=== PATIENT | male | born 1965 | race Caucasian/White ===

== ENCOUNTER → 2021-01-02 15:57 | Outpatient (CLI) | payer BC, SELFPAY ==
--- NOTE | ~2021-01-02 | XR_ITS ---
EXAMINATION: XR wrist RT min 3V DATE: 01/02/2021 16:12 INDICATION: Right wrist pain. TECHNIQUE: 4 views of right wrist were obtained. COMPARISON: Right wrist radiograph 10/23/2017 FINDINGS: Bone alignment is normal. There is a nondisplaced fracture of proximal scaphoid. There is s clerosis in proximal 2/3 of scaphoid. There is mild osteoarthritis of triscaphe joint. IMPRESSION: 1. Nondisplaced fracture of proximal scaphoid. 2. Sclerosis in proximal 2/3 of scaphoid, consistent with osteonecrosis. Reviewed, dictated and finalized at location B.
== END ==
PROVIDERS: PCP Family Medicine; Visit Provider Family Medicine
DX: M25.531 Pain in right wrist (principal); S62.034A Nondisplaced fracture of proximal third of navicular [scaphoid] bone of right wrist, initial encounter for closed fracture
CPT/HCPCS: 73110

== ENCOUNTER → 2021-02-06 15:11 | Outpatient (CLI) | payer BC, SELFPAY ==
--- NOTE | ~2021-02-06 | MR_ITS ---
EXAMINATION: MR wrist RT wo/w con DATE: 02/06/2021 16:55 INDICATION: Scaphoid fracture with right wrist pain and swelling and limited range of motion TECHNIQUE: Magnetic resonance imaging (MRI) of the right wrist was performed without intravenous cont rast. Sequences performed include axial PD-weighted FSE and PD-weighted FS FSE, coronal PD-weighted F S FSE and T1-weighted SE, and sagittal PD-weighted FS FSE and PD-weighted FSE. COMPARISON: Right wrist radiograph dated 01/02/2021 FINDINGS: Bones/other: Nondisplaced comminuted fracture of the scaphoid which includes transverse fracture at the scaphoid w aist and at the proximal pole and with an additional intervening fracture plane. There is mild marrow enhancement at the distal pole of the scaphoid. There is decreased T1 signal, absent enhancement and increased sclerosis on prior radiographs in the scaphoid proximal to the scaphoid waist fracture con sistent with osteonecrosis. No other fractures identified. Mild osteoarthritis at the distal radiouln ar, wrist, midcarpal, triscaphe and first carpal metacarpal joints. There are small joint effusions a t the distal radioulnar joint and at the midcarpal joint. Diffuse prominent synovitis and soft tissue swelling about the carpus. There are small ganglion cysts along the radial and ulnar sides of the pa lmar aspect of the distal radius. There is an additional 6-7 mm diameter ganglion cyst radial to the distal pole of the scaphoid. Intrinsic ligaments: The scapholunate and lunotriquetral ligaments are normal. Triangular fibrocartilage complex (TFCC): The triangular fibrocartilage including its foveal and styloid attachments as well as the dorsal and volar radioulnar ligaments are normal. The ulnar collateral ligament, ulnotriquetral ligament and men iscal homologue are normal. The extensor carpi ulnaris tendon sheath is normal. Extensor wrist: Extensor tendons of the wrist are normal. No tenosynovitis. Flexor wrist: The flexor tendons of the wrist are normal. No abnormality in the carpal tunnel with normal median n erve. Guyon's canal: Guyon's canal including the ulnar nerve and artery are normal. IMPRESSION: 1. Nondisplaced comminuted scaphoid fracture including at the waist and extending into the proximal p ole. Marrow signal changes, sclerosis and absent enhancement in the proximal pole proximal to the sca phoid waist fracture consistent with osteonecrosis. 2. 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 Reviewed, dictated and finalized at location A. IMPRESSION: 1. Nondisplaced comminuted scaphoid fracture including at the waist and extendi ng into the proximal pole. Marrow signal changes, sclerosis and absent enhancem ent in the proximal pole proximal to the scaphoid waist fracture consistent wit h osteonecrosis. 2. 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
[2021-02-06 15:46] LABS: Estimated Glomerular Filt Rate > 60
== END ==
PROVIDERS: PCP Family Medicine; Visit Provider Plastic Surgery
DX: S62.034A Nondisplaced fracture of proximal third of navicular [scaphoid] bone of right wrist, initial encounter for closed fracture (principal); M19.031 Primary osteoarthritis, right wrist
CPT/HCPCS: 73223; A9577

== ENCOUNTER 2022-04-12 13:27 | Emergency (ER) | payer BC, SELFPAY ==
[2022-04-12 13:44] VITALS: BP 156/76; PULSE 86; RESP 18; TEMP 36.6; O2SAT 99
--- NOTE | 2022-04-12 14:16 | ED.GENADULT ---
HPI - General Adult General Chief complaint: Extremity Injury, Lower Stated complaint: Swollen Ankle History of Present Illness HPI narrative: Patient is a 56-year-old male who presents to [facility] via [facility] for evaluation of left ankle and left foot swelling that began 2 days ago. Additionally, he reports posterior knee pain that began 1-1/2 weeks ago. The pain has vastly improved although not resolved. He also reports pain in calf when changing from sitting to standing position. Denies taking meds for sx. Of note, patient contacted PCP who recommended urgent care for ultrasound imaging per pt report. Related Data Home Medications Medication Instructions Recorded Confirmed aspirin 81 mg tablet,delayed 81 mg PO DAILY 08/05/19 04/12/22 release tadalafil 5 mg tablet 5 mg DIRECTED 04/12/22 Allergies Allergy/AdvReac Type Severity Reaction Status Date / Time No Known Allergies Allergy Verified 04/12/22 13:50 Review of Systems Review of Systems: Denies injury, paresthesias, difficulty with ambulation/gait, erythema, weakness, decreased range of motion, abdominal pain, nausea, vomiting, chest pain, shortness of breath PMFSH Past Medical History Medical History Erectile dysfunction FH: CAD (coronary artery disease) GERD (gastroesophageal reflux disease) Hyperlipemia Right wrist pain Smokes less than 2 packs a day with greater than 30 pack year history Family History Family History Father Family history of coronary artery disease Social History Social History Years smoked: 35 Smoking status: Current every day smoker Tobacco type: cigarettes Second hand tobacco smoke exposure: No Alcohol intake: current Drinks per week: 12 Substance use: never Substance use type: does not use Gender identity (if verbalized by the patient): Male Comments I have reviewed and agree with the patient's past medical, surgical, social, and family hx as documented by the RN. There is no relevant family history pertinent to the presenting complaint. Exam Narrative: GENERAL: Well-appearing, well-nourished, and in no acute distress. HEAD: Normocephalic, atraumatic. NECK: Supple. No Lymphadenopathy or nuchal rigidity appreciated. CHEST: Bilateral lung medina are clear to auscultation. No respiratory distress. No evidence of cough or pleuritic cp upon examination. HEART: Regular rate and rhythm. No murmur, gallop, or rub heard. EXTREMITIES: Moderate generalized swelling noted to left ankle and left foot. No evidence of injury, decreased ROM, cyanosis, hematoma, laceration, abrasion, deformity, rash, or puncture. No evidence of pain with active/passive ROM. No evidence of dislocation, ligament laxity, effusion, or pain at rest. Pulses palpable at 2+, strength 5/5, and cap refill < 3 seconds in affected extremity. DTRs normal. Gait normal. Negative Homans. SKIN: Warm, dry, no rash. NEURO: No focal deficits. Alert and oriented x3. SPECIAL OBSERVATIONS: Smiling. Laughing. No evidence of discomfort. Course Course Emergency Course: Recommended ER services for rule out DVT. The patient/guardian displays adequate decision making capability and despite a detailed discussion of alternatives, benefits, risks, and consequences refuses higher level of care to ER. Level of Care: Express Care Visit Vital Signs Vital signs: Vital Signs Temperature 97.9 F 04/12/22 13:44 Pulse Rate 86 04/12/22 13:44 Respiratory Rate 18 04/12/22 13:44 Blood Pressure 156/76 H 04/12/22 13:44 Pulse Oximetry 99 04/12/22 13:44 Oxygen Delivery Room Air 04/12/22 13:44 Temperature 97.9 F 04/12/22 13:44 Pulse Rate 86 04/12/22 13:44 Respiratory Rate 18 04/12/22 13:44 Blood Pressure 156/76 H 04/12/22 13:44 Pulse Oximetry 99 04/12/22 13:44 Oxygen Delivery Room Air 04/12/22 13:44
== END 2022-04-12 14:38 | disposition left against medical advice (07) ==
PROVIDERS: Emergency Provider Nurse Practitioner Family; PCP Family Medicine
DX: M25.472 Effusion, left ankle (principal); F17.210 Nicotine dependence, cigarettes, uncomplicated; K21.9 Gastro-esophageal reflux disease without esophagitis; E78.5 Hyperlipidemia, unspecified; Z79.82 Long term (current) use of aspirin
CPT/HCPCS: 99211; G0463

== ENCOUNTER 2022-04-12 16:58 | Emergency (ER) | payer BC, SELFPAY ==
--- NOTE | ~2022-04-12 | US_ITS ---
EXAMINATION: US venous doppler [facility] DATE: 04/12/2022 17:37 INDICATION: Left lower limb swelling. TECHNIQUE: Grayscale ultrasound images without and with compression and Doppler ultrasound images of the left lower extremity veins were obtained. COMPARISON: None. FINDINGS: The visualized portions of left common femoral vein, profunda (deep) femoral vein, femoral vein, popl iteal vein, peroneal veins, posterior tibial veins, and greater saphenous vein outflow are patent. IMPRESSION: 1. No deep venous thrombosis. Reviewed, dictated and finalized at location A.
[2022-04-12 17:04] VITALS: BP 179/90; PULSE 80; RESP 16; TEMP 36.4; O2SAT 99
--- NOTE | 2022-04-12 17:18 | ED.EXTPRO ---
HPI - Extremity Problem General Chief complaint: Extremity Problem,Nontraumatic Stated complaint: left ankle swelling Time Seen by Provider: 04/12/22 17:03 History of Present Illness HPI Narrative: 56-year-old male presented to the emergency room for evaluation of left ankle and foot swelling. Patient states 3 days ago he was experiencing some pain behind his left knee, which resolved. States the following day he recognized some swelling to his foot and ankle. Denies any injury or trauma. Patient was evaluated for this at urgent care earlier today and was referred here. Patient denies any shortness of breath or difficulty breathing. No history of DVTs. Related Data Home Medications Medication Instructions Recorded Confirmed aspirin 81 mg tablet,delayed 81 mg PO DAILY 08/05/19 04/12/22 release tadalafil 5 mg tablet 5 mg DIRECTED 04/12/22 Allergies Allergy/AdvReac Type Severity Reaction Status Date / Time No Known Allergies Allergy Verified 04/12/22 13:50 Review of Systems Review of Systems: CONSTITUTIONAL: Denies fever, chills, or sweats. EYES: Denies visual changes, redness, or discharge. ENT: Denies rhinorrhea, congestion, sore throat, or otalgia. CARDIOVASCULAR: Denies chest pain, palpitations, or edema. RESPIRATORY: Denies cough or dyspnea. GASTROINTESTINAL: Denies abdominal pain, nausea, vomiting, or diarrhea. GENITOURINARY: Denies dysuria or hematuria. SKIN: Denies rash or itching. MUSCULOSKELETAL: Reports swelling to left ankle and left foot NEUROLOGIC: Denies headache, numbness, dizziness, or weakness. PSYCHIATRIC: Denies anxiety or depression. [facility] Past Medical History Medical History Erectile dysfunction FH: CAD (coronary artery disease) GERD (gastroesophageal reflux disease) Hyperlipemia Right wrist pain Smokes less than 2 packs a day with greater than 30 pack year history Family History Family History Father Family history of coronary artery disease Social History Social History Years smoked: 35 Smoking status: Current every day smoker Tobacco type: cigarettes Second hand tobacco smoke exposure: No Alcohol intake: current Drinks per week: 12 Substance use: never Substance use type: does not use Gender identity (if verbalized by the patient): Male Exam Narrative: GENERAL: Well-appearing, well-nourished, no physical limitations, and in no acute distress. HEAD: Normocephalic, atraumatic. EYES: Conjunctivae normal, PERRLA and EOMI. CHEST: Clear to auscultation. No respiratory distress. No wheezes rales or rhonchi. No tenderness. HEART: Regular rate and rhythm. No murmur heard. Normal peripheral pulses. EXTREMITIES: Left lower extremity: Nonpitting edema to the ankle and foot. No signs of injury neurovascular is intact distal SKIN: Warm, dry, no rash. No noted wounds NEURO: No focal deficits. Alert and oriented x3. MAEW. CN's II-XI intact bilaterally, normal gait PSYCH: Cooperative. Normal mood and affect. Course Vital Signs Vital signs: Vital Signs Temperature 36.4 C 04/12/22 17:04 Pulse Rate 80 04/12/22 17:04 Respiratory Rate 16 04/12/22 17:04 Blood Pressure 179/90 H 04/12/22 17:04 Pulse Oximetry 99 04/12/22 17:04 Oxygen Delivery Room Air 04/12/22 17:04 Temperature 36.4 C 04/12/22 17:04 Pulse Rate 80 04/12/22 17:04 Respiratory Rate 16 04/12/22 17:04 Blood Pressure 179/90 H 04/12/22 17:04 Pulse Oximetry 99 04/12/22 17:04 Oxygen Delivery Room Air 04/12/22 17:04 Discharge Plan Discharge Clinical Impression: Leg edema, left, Diamond's cyst, ruptured Patient Disposition: Home, Self-Care Condition: Stable Instructions: Antibiotic Form Additional Instructions: Tylenol and ibuprofen as needed. Prescriptions: No Action tadalafil 5 mg tablet 5 mg DIRECTED Rx Instructions:
== END 2022-04-12 18:18 | disposition home or self-care (01) ==
PROVIDERS: Emergency Provider Nurse Practitioner Family; PCP Family Medicine
DX: M66.0 Rupture of popliteal cyst (principal); R60.0 Localized edema; E78.5 Hyperlipidemia, unspecified; K21.9 Gastro-esophageal reflux disease without esophagitis; F17.210 Nicotine dependence, cigarettes, uncomplicated; Z79.82 Long term (current) use of aspirin
CPT/HCPCS: 93971; 99284

== ENCOUNTER → 2022-12-05 14:53 | Outpatient (CLI) | payer BC, SELFPAY ==
--- NOTE | ~2022-12-05 | MR_ITS ---
EXAMINATION: MR knee LT wo con DATE: 12/05/2022 15:55 INDICATION: Left knee pain. TECHNIQUE: Magnetic resonance imaging (MRI) of the left knee was performed without intravenous contra st. COMPARISON: None. FINDINGS: Medial compartment: There is a complex tear of body and posterior horn of medial meniscus. There is cartilage surface irr egularity of tibial condyle and femoral condyle. There are tiny osteophytes. Lateral compartment: Lateral meniscus is intact. There is cartilage surface irregularity of tibial condyle and femoral con dyle. There are tiny osteophytes. Patellofemoral compartment: There is deep partial thickness cartilage loss of patellar lateral facet with 6 mm cartilage flap. Th ere is cartilage surface irregularity of trochlea. There are tiny osteophytes. Ligaments and tendons: The anterior and posterior fusion ligaments are normal. Medial collateral ligament and lateral collat eral ligament complex are normal. There is mild patellar tendinopathy. Fluid: There is a large knee joint effusion. There is a moderate-sized Diamond's cyst. Osseous/other: There is a partial tear of the myotendinous junction of medial head of gastrocnemius with hematoma. T here is widespread subcutaneous edema in the lower leg. IMPRESSION: 1. Moderate chondrosis of patellofemoral compartment and mild chondrosis of medial and lateral compar tments. 2. Tear of medial meniscus. 3. Large knee joint effusion. 4. Moderate-sized Diamond's cyst. 5. Grade 2 strain of medial head of gastrocnemius muscle. Reviewed, dictated and finalized at location A. IMPRESSION: 1. Moderate chondrosis of patellofemoral compartment and mild chondrosis of med ial and lateral compartments. 2. Tear of medial meniscus. 3. Large knee joint effusion. 4. Moderate-sized Diamond's cyst. 5. Grade 2 strain of medial head of gastrocnemius muscle.
== END ==
DX: S83.242A Other tear of medial meniscus, current injury, left knee, initial encounter (principal); M25.462 Effusion, left knee; M71.22 Synovial cyst of popliteal space [Baker], left knee; S86.812A Strain of other muscle(s) and tendon(s) at lower leg level, left leg, initial encounter; T14.90XA Injury, unspecified, initial encounter
CPT/HCPCS: 73721

== ENCOUNTER 2024-12-20 00:39 | Day surgery (SDC) | payer BC, SELFPAY ==
[2024-12-13 10:35] VITALS: BMI 27.3
--- OUTSIDE RECORDS SUMMARY | 2024-12-20 00:42 | XMS_ITS | Referral Summary ---
Author Organization [facility] Address [facility] [place] [address] Care Team Providers Care Administrative Job Titles Name Role Phone Rogelio Martinez MD Primary Care Provider Allergies No known active allergies Medications nystatin-triamci nolone cream Apply 1 application topically 2 (two) times a day as needed (rash) 1 Active simvastatin (ZOCOR) 20 mg tabletIndication s:hyperlipidemia Take 20 mg by mouth every other day 1 Active tadalafiL (CIALIS) 5 mg tabletIndication s:benign prostatic hyperplasia with lower urinary tract sx Take 5 mg by mouth nightly [address] (ACIPHEX) 20 mg EC tabletIndication s:Treatment of Non-Bleeding Gastric Disorder Take 20 mg by mouth nightly 1 Active aspirin 81 mg enteric coated tabletIndication s:primary prevention of coronary heart disease Take 81 mg by mouth nightly Active oxyCODONE (ROXICODONE) 5 mg immediate release tabletIndication s:Pain Take 1 tablet (5 mg total) by mouth every 4 (four) hours as needed for pain (after tylenol and ibuprofen) 5 tablet 1 Active triamcinolone (KENALOG) 0.025 % ointment Apply topically 2 (two) times a day Avoid applying to incision 30 g 1 1 Active meloxicam (MOBIC) 15 mg tablet Take 1 tablet (15 mg total) by mouth daily 30 tablet 3 Active Active Problems Problem Noted Date Diagnosed Date Left knee pain 12/10/2022 Diamond's cyst of knee, left 06/18/2022 Swelling of right wrist 06/18/2021 Ganglion, right wrist 03/28/2021 Overview (03/28/2021): Added automatically from request for surgery [id number] Injury of right wrist 03/20/2021 Social History Tobacco Use Types Packs/Day Years Used Date Smoking Tobacco: Every Day Cigarettes 1 39.3 Started: 1985 Smokeless Tobacco: Never AUDIT-C Answer Date Recorded Q1: How often do you have a drink containing alcohol? 4 or more times a week 05/11/2021 Q2: How many drinks containi ng alcohol do you have on a typical day when you are drinking? 1 or 2 Q3: How often do you have si x or more drinks on one occasion? 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 Gender Identity Not on file Sexual Orientation Not on file Last Filed Vital Signs Vital Sign Reading Time Taken Comments Blood Pressure 156/83 05/31/2022 2:26 PM CDT Pulse 85 05/31/2022 2:26 PM CDT Temperature 36.5 C (97.7 F) 06/04/2021 11:55 AM CDT Respiratory Rate 16 06/04/2021 11:5 5 AM CDT Oxygen Saturation 99% 05/31/2022 2:26 PM CDT Inhaled Oxygen Concentration - - Weight 83.9 kg (184 lb 15.5 oz) 05/31/2022 2:26 PM CDT Height 177.8 cm (5' 10 ) 05/31/2022 2:26 PM CDT Body Mass Index 26.54 05/31/2022 2:26 PM CDT Plan of Treatment Not on file Insurance [employer] [place] Member Subscriber Plan / Payer (Ef fective 2021-Present) Name:Oswald Bernal Relation to Subscriber:Self Name:Oswald Bernal Payer ID:[id number] (NAIC) Type:HEALTHCARE/EXCHANGE Address: [address] [employer] [place] Care Teams Administrative Job Titles Relationship Specialty Start Date End Date Rogelio Martinez MD [address] [facility] [address] [place] [address] PCP - General Family Medicine 02/16/21
--- OUTSIDE RECORDS SUMMARY | 2024-12-20 00:42 | XMS_ITS | Clinical Summary ---
Author Organization [facility] Address [facility] [place] [address] Care Team Providers Care Count Room Clerk Name Role Phone Rogelio Martinez MD Primary Care Provider [phone] Allergies No known active allergies Medications RABEprazole EC (ACIPHEX) 20 MG tablet Take 1 tablet (20 mg total) by mouth daily. Active lisinopril (PRINIVIL) 20 MG tablet Take 1 tablet (20 mg total) by mouth daily. Active simvastatin (ZOCOR) 20 MG tablet Take 1 tablet (20 mg total) by mouth nightly at bedtime. Active Immunizations Immunization Administration Dates Next Due Tdap (Boostrix) 09/08/2023 Social History Tobacco Use Types Packs/Day Years Used Date Smoking Tobacco: Every Day Cigarettes Smokeless Tobacco: Never Tobacco Cessation:Ready to Q uit: Not Asked; Counseling Given: Not Answered Alcohol Use Standard Drinks/Week Comments Yes 0 (1 standard drink = 0.6 oz pur e alcohol) occasionally Sex and Gender Information Value Date Recorded Sex Assigned at Not on file Legal Sex Male 11:19 PM CDT Gender Identity Not on file Sexual Orientation Not on file Last Filed Vital Signs Vital Sign Reading Time Taken Comments Blood Pressure 165/84 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 Pulse 75 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 Temperature 36.3 C (97.4 F) 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 Respiratory Rate 18 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 Oxygen Saturation 99% 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 Inhaled Oxygen Concentration - - Weight 86.4 kg (190 lb 7.6 oz) 09/08/2023 10:54 AM FROZEN PIE MAKER Height 177.8 cm (5' 10 ) 09/08/2023 10:54 AM FROZEN PIE MAKER Body Mass Index 27.33 09/08/2023 10:54 AM FROZEN PIE MAKER Plan of Treatment Health Maintenance Due Date Last Done Comments Colorectal Cancer Screening Colonoscopy (10 Years) 1967 Annual Physical 1970 Hepatitis C 1985 Hepatitis B Vaccines (1 of 3 - 19+ 3-dose series) 1986 Pneumococcal Vaccine: 50+ Ye ars (1 of 2 - PCV) 1986 Zoster Vaccines (1 of 2) 2017 COVID-19 Vaccine (1 - 2023-2 5 season) 2024 DTaP, Tdap and Td Vaccines ( 2 - Td or Tdap) 09/08/2033 09/08/2023 Meningococcal B Vaccine Aged Out No l onger eligible based on patient's age to complete this topic Meningococcal Vaccine Aged Out No angela amador eligible based on patient's age to complete this topic RSV Immunizations Under 20 Months Aged Out No longer eligible based on patient's age to complete this topic Insurance [facility] Care Teams Count Room Clerk Relationship Specialty Start Date End Date Rogelio Martinez MD [address] [place] [address] PCP - General FAMILY PRACTICE 09/08/23
--- OUTSIDE RECORDS SUMMARY | 2024-12-20 00:42 | XMS_ITS | Clinical Summary ---
Author Organization [facility] Address [address] 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 This disclosure is being madepursuant to the Care Everywhere program and may not contain all information available regarding this patient. 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 Gender Identity Not on file Sexual Orientation Not on file Plan of Treatment Health Maintenance Due Date Last Done Comments COLOGUARD (AGES 45-75) - COL ON CA SCREENING 1967 COLON MONITORING 1967 COLONOSCOPY - COLON CA SCREENING 1967 CT COLONOGRAPHY - COLON CA SCREENING 1967 Colorectal Cancer Screening 1967 FIT - COLON CA SCREENING 1967 FLEX SIG - COLON CA SCREENING 1967 LIPID TESTING 1967 HIV SCREENING 1982 HEPATITIS C SCREENING 07/23/1985 DTAP/TDAP/TD VACCINES (1 - Tdap) 1986 HEPATITIS B VACCINE (1 of 3 - 19+ 3-dose series) 1986 PNEUMOCOCCAL VACCINE 50+ (1 of 1 - PCV) 2017 ZOSTER VACCINE (1 of 2) 2017 COVID-19 VACCINE ( - 2023-2 5 season) 2024 DEPRESSION SCREENING 08/25/2024 INFLUENZA VACCINE (Season Ended) 2025 HIB VACCINE Aged Out No longer eligi ble based on patient's age to complete this topic HPV VACCINE Aged Out No longer eligi ble based on patient's age to complete this topic MENINGOCOCCAL (Group B) VACC INE SHARED DECISION-MAKING Aged Out No longer eligibl e based on patient's age to complete this topic MENINGOCOCCAL GROUPS A/C/Y/W VACCINE Aged Out No longer eligible b ased on patient's age to complete this topic Insurance
--- OUTSIDE RECORDS SUMMARY | 2024-12-20 00:42 | XMS_ITS | Encounter Summary ---
Author Organization [facility] Address [address] [place] [address] Care Team Providers Care Supervisor Incising Name Role Phone Unavailable Primary Care Provider Unavailabl e Encounter Details Date Type Department Care Team (Late st Contact Info) Description 10/28/2019 Lab Requisition [facility] DermPath Lab [address] [place] [id number] Tye Quevedo MD [address] [facility] [place] [address] Social History Tobacco Use Types Packs/Day Years Used Date Smoking Tobacco: Never Assessed Sex and Gender Information Value Date Recorded Sex Assigned at Not on file 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 Gender Identity Not on file Sexual Orientation Not on file documented as of this encounter Plan of Treatment Not on file documented as of this encounter Procedures Procedure Name Priority Date/Time Associated Diagnosis Comments DERMATOPATHOLOGY Routine 10/26/2019 12:0 0 AM GAS METER READER documented in this encounter Results * DERMATOPATHOLOGY (10/26/2019 12:00 AM GAS METER READER) Case Report Dermatopathology Report Case: [id number] Authorizing Provider: Tye Quevedo MD Collected: 10/26/2019 12:00 AM Ordering Location: [facility] DermPath Lab Received: 10/28/2019 08:42 AM Pathologist: Gera Duron MD Specimen: Skin, left FH 0 2:36 PM GAS METER READER DERMATOPATHOLOGY LABORATORY Final Diagnosis Specimen A. SKIN, left FH: HYPERPLASTIC (HYPERTROPHIC) ACTINIC KERATOSIS; EXTENDING TO THE BASE OF THE SPECIMEN (L57.0) (see microscopic description and comment) 0 2:36 PM GAS METER READER DERMATOPATHOLOGY LABORATORY Clinical History BCCA vs cyst. Path #[id number]. 0 2:36 PM [facility] DERMATOPATHOLOGY LABORATORY Gross Description Specimen A: Received is one formalin filled container labeled with the patient's name and designated left FH. The specimen consists of a shave biopsy measuring [id number]. Jar 0. 0 2:36 PM [facility] DERMATOPATHOLOGY LABORATORY Microscopic Description Specimen A. SKIN, left FH: There is hyperkeratosis alternating with parakeratosis. There is epidermal hyperplasia with disorderly maturation of keratinocytes with nuclear pleomorphism confined to the lower half of the epidermis. This process extends to the base of the specimen. COMMENT: A squamous cell carcinoma cannot be ruled out. Additional deeper sections were obtained and reviewed. 0 2:36 PM [facility] DERMATOPATHOLOGY LABORATORY Disclaimer An external and internal positive and negative controls are appropriate for the histochemical, immunohistochemical and immunofluorescence stain(s) in this case (if any), except where stated explicitly. The performance characteristics of the stain(s) cited in this report were developed and its performance characteristic determined by the Dermatopathology Laboratory at [facility], directed by Dr. Markie Duron. These tests need not be, and therefore are not, approved by the [place] Food and Drug Administration. The tests are used for clinical purposes. Billing Codes Specimen Charges Stain Charges 26751 1 0 2:36 PM [facility] DERMATOPATHOLOGY LABORATORY Embedded Images 0 2:36 PM [facility] DERMATOPATHOLOGY LABORATORY Pathology/Cytolog y TISSUE SPECIMEN FROM SKIN / Unknown 10/26/2019 10/28/2019 8:42 AM GAS METER READER us Tye Quevedo MD LAB - PATHOLOGY/CYTOLOGY ORDER YESSI Final Result DERMATOPATHOLOGY LABORATORY [facility] - Department of Dermatology [address] [place] [address], [facility] [phone] documented in this encounter Visit Diagnoses Not on filedocumented in this encounter
--- OUTSIDE RECORDS SUMMARY | 2024-12-20 00:42 | XMS_ITS | Clinical Summary ---
Author Organization [facility] Address Formerly [facility], later [facility] [place] [address] Care Team Providers Care Archeology Faculty Member Name Role Phone Rogelio Martinez MD Primary [...] (03/28/2021): Added automatically from request for surgery [id number] Injury of right wrist 03/20/2021 Surgical History Surgery Date Site/Laterality Comments WISDOM TOOTH EXTRACTION 08/25/1989 - 08/24/1990 Medical History Medical History Date Comments HLD (hyperlipidemia) BPH (benign prostatic hyperplasia) GERD (gastroesophageal reflux disease) Family History Medical History Relation Name Comments No Known Problems Father No Known Problems Mother Anesthesia problems Neg Hx Relation Name Status Comments Father Mother Social History Tobacco Use Types Packs/Day Years [...] on file 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 Gender Identity Not on file Sexual Orientation Not on file Obstetrics History Last Filed Vital Signs Vital Sign Reading [...] 05/31/2022 2:26 PM CDT Plan of Treatment Health Maintenance Due Date Last Done Comments Colon Cancer Screening-Colonoscopy 1967 Depression Screening 1967 Hepatitis C Screening 1967 Prostate Cancer Screening-PSA 1967 DTaP/Tdap/Td Vaccine (1 - Tdap) 1978 Hepatitis B Screening 1985 Regular Well Visit/Exam 18-64 1985 Pneumococcal vaccine <65 (1 of 2 - PCV) 1986 Zoster Vaccine (1 of 2) 2017 Influenza Vaccine (Season Ended) 2025 [place] Care Teams Archeology Faculty Member Relationship Specialty Start Date End Date Rogelio Martinez MD [address] [facility] [address] [place] [address] PCP - General Family Medicine 02/16/21
[2024-12-20 06:45] VITALS: BP 136/85; PULSE 97; RESP 18; TEMP 36.6; O2SAT 97; BMI 26.7
[2024-12-20] MEDS: LACTATED RINGERS 1,000 ML 150 ML IV CONT (06:53)
--- NOTE | 2024-12-20 07:08 | P.PNAN_ITS ---
Anes - Initial Pre Proc Eval Procedure: Operation Date: 12/20/24 08:00 Proposed Procedures p Colonoscopy - Ruddy Pruett MD Date/Time: 12/20/24 07:08 Surgeon: Ruddy Pruett MD Pre Op Diagnosis: Fecal abnormalities Patient Data Age: 59 Gender: M Height: 1.78 m Weight: 84.6 kg Last Vital Signs Temp 97.9 F 12/20/24 06:45 Pulse 97 12/20/24 06:45 Resp 18 12/20/24 06:45 BP 136/85 12/20/24 06:45 Pulse Ox 97 12/20/24 06:45 O2 Del Method Room Air 12/20/24 06:45 Allergies Allergy/AdvReac Type Severity Reaction Status Date / Time No Known Allergies Allergy Verified 12/20/24 06:43 Home Medications ?Medication ?Instructions ?Recorded ?Confirmed ?Type aspirin 81 mg tablet,delayed 81 mg PO DAILY 08/05/19 12/20/24 History release rabeprazole 20 mg tablet,delayed 20 mg PO DAILY #90 tabs 05/21/24 12/20/24 Rx release tadalafil 5 mg tablet See Rx Instructions .Route 08/23/24 12/14/24 Rx .COMPLEX #90 tabs simvastatin 20 mg tablet 20 mg PO DAILY #90 tabs 09/19/24 12/20/24 Rx amlodipine 5 mg tablet (Norvasc) 5 mg PO DAILY #30 tabs 10/19/24 12/20/24 Rx lisinopril 20 mg tablet See Rx Instructions .Route 11/15/24 12/20/24 Rx .COMPLEX #30 tabs Patient hx anesthesia problems: none Family hx anesthesia problems: none Results Review: All pre-operative results and documents have been reviewed as part of the pre- operative evaluation. [facility] Past Medical History Medical History HTN (hypertension) Hyperlipemia Smokes less than 2 packs a day with greater than 30 pack year history Right wrist pain FH: CAD (coronary artery disease) Erectile dysfunction GERD (gastroesophageal reflux disease) Family History Family History Father Family history of coronary artery disease Social History Social History Social History: Smoking packs per day: 1 Smoking cigarettes per day: 20.0 Years smoked: 35 Smoking pack-years: 35.00 Smoking status: Current every day smoker Tobacco type: cigarettes Second hand tobacco smoke exposure: No Alcohol intake: current Drinks per week: 12 Substance use: never Substance use type: does not use Do You Feel Safe in your Home?: Yes Lack of Transportation: No Lack of Food: Never True Current Housing: I Have Housing Concerned About Future Housing: No Difficulty Paying Gas/Electric Bills: No Difficulty Paying for Meds: No Currently Unemployed: No Education: Don't Know Difficulty w/ Childcare or Family Care: No Living arrangements: with family Occupation/Education: occupation Gender identity (if verbalized by the patient): Male Sexual Orientation (if Verbalized by the Patient): Straight or Heterosexual Spiritual care concerns: No Anes - Eval Final PreProcedure Day of Procedure 12/20/24 07:08 Patient weight: normal Lungs: normal air movement Airway: Mallampati scale class II Neurological: alert and oriented Last oral intake: >/= 8 hours ASA classification: II Emergent: no Anesthetic plan: proceed Anesthesia type and monitoring: general GIVS and standard monitoring Results Review: All pre-operative results and documents have been reviewed as part of the pre- operative evaluation. HTN, hyperlipidemia, Smoker, 1 ppd for many years, pt can walk 1-2 fos, no cp or sob. Informed Consent: The patient's anesthetic plan and its attendant risks and benefits were discussed with the patient/family/POA. Questions were solicited and answers provided to the satisfaction of the patient/family/POA.
--- NOTE | 2024-12-20 07:56 | PM.IMHP ---
H&P: HPI History of Present Illness Date/Time: 12/20/24 07:56 Chief Complaint: Screening colonoscopy Narrative: This is the patient's first colonoscopy. There are no GI symptoms and there is no family history of colorectal cancer. Review of Systems Review of Systems: All systems reviewed & are unremarkable except as noted in HPI and below PMFSH Past Medical History Medical History HTN (hypertension) Hyperlipemia Smokes less than 2 packs a day with greater than 30 pack year history Right wrist pain FH: CAD (coronary artery disease) Erectile dysfunction GERD (gastroesophageal reflux disease) Family History Family History Father Family history of coronary artery disease Social History Social History Social History: Smoking packs per day: 1 Smoking cigarettes per day: 20.0 Years smoked: 35 Smoking pack-years: 35.00 Smoking status: Current every day smoker Tobacco type: cigarettes Second hand tobacco smoke exposure: No Alcohol intake: current Drinks per week: 12 Substance use: never Substance use type: does not use Do You Feel Safe in your Home?: Yes Lack of Transportation: No Lack of Food: Never True Current Housing: I Have Housing Concerned About Future Housing: No Difficulty Paying Gas/Electric Bills: No Difficulty Paying for Meds: No Currently Unemployed: No Education: Don't Know Difficulty w/ Childcare or Family Care: No Living arrangements: with family Occupation/Education: occupation Gender identity (if verbalized by the patient): Male Sexual Orientation (if Verbalized by the Patient): Straight or Heterosexual Spiritual care concerns: No Meds Home Medications and Allergies Home Medications ?Medication ?Instructions ?Recorded ?Confirmed ?Type aspirin 81 mg tablet,delayed 81 mg PO DAILY 08/05/19 12/20/24 History release rabeprazole 20 mg tablet,delayed 20 mg PO DAILY #90 tabs 05/21/24 12/20/24 Rx release tadalafil 5 mg tablet See Rx Instructions .Route 08/23/24 12/14/24 Rx .COMPLEX #90 tabs simvastatin 20 mg tablet 20 mg PO DAILY #90 tabs 09/19/24 12/20/24 Rx amlodipine 5 mg tablet (Norvasc) 5 mg PO DAILY #30 tabs 10/19/24 12/20/24 Rx lisinopril 20 mg tablet See Rx Instructions .Route 11/15/24 12/20/24 Rx .COMPLEX #30 tabs Allergies Allergy/AdvReac Type Severity Reaction Status Date / Time No Known Allergies Allergy Verified 12/20/24 06:43 Vital Signs Vital Signs - 24 hr 12/20/24 06:45 Temperature 97.9 F Pulse Rate 97 Respiratory Rate 18 Blood Pressure 136/85 Pulse Oximetry 97 Oxygen Delivery Room Air Exam Const: General: cooperative and healthy appearing Resp: Effort & Inspection: normal respiratory effort and able to speak in complete sentences Auscultation: clear to auscultation bilaterally Cardio: Rate: regular rate Rhythm: regular rhythm GI: Inspection: normal to inspection GI Palp: No No hepatosplenomegaly present Auscultation: normal bowel sounds Rectal Exam: deferred Skin: General skin exam: normal color Psych: Appearance: grossly normal Mental Status: mental status grossly normal Assessment and Plan Assessment and plan (1) Encounter for screening colonoscopy: Code(s): Z12.11 - Encounter for screening for malignant neoplasm of colon Status: Acute Assessment and Plan: The patient is deemed a good candidate for the procedure. Consent signed. Will proceed.
[2024-12-20] MEDS: SIMETHICONE ORAL SUSPENSION 20 MG/0.3 ML 30 ML BOTTLE 0.6 ML IRRIGATION (08:12)
[2024-12-20 08:30] VITALS: BP 108/65; PULSE 74; RESP 22; O2SAT 99
[2024-12-20 08:40] VITALS: BP 106/65; PULSE 68; RESP 16; O2SAT 100
[2024-12-20 08:50] VITALS: BP 139/74; PULSE 76; RESP 16; O2SAT 98
== END 2024-12-20 09:00 | disposition home or self-care (01) ==
PROVIDERS: PCP Family Medicine; Referring Provider Physician Assistant Medical; Visit Provider Internal Medicine Gastroenterology
PROC: 0DJD8ZZ Inspection of Lower Intestinal Tract, Via Natural or Artificial Opening Endoscopic (ICD-10-PCS; CPT 45378; principal; 2024-12-20 08:00)
DX: Z12.11 Encounter for screening for malignant neoplasm of colon (principal); D12.2 Benign neoplasm of ascending colon; D12.5 Benign neoplasm of sigmoid colon; D12.8 Benign neoplasm of rectum; K57.30 Diverticulosis of large intestine without perforation or abscess without bleeding; I10 Essential (primary) hypertension; E78.5 Hyperlipidemia, unspecified; K21.9 Gastro-esophageal reflux disease without esophagitis; F17.210 Nicotine dependence, cigarettes, uncomplicated; Z79.82 Long term (current) use of aspirin
CPT/HCPCS: 45385; 88305; J2003; J2704; J7120